=== PATIENT | female | born 2000 ===

== ENCOUNTER 2024-11-21 05:25 | Outpatient (CLI) | payer SELFPAY ==
[~2024-11-21] VITALS: Ht 165.1 cm; Wt 72.0 kg
[2024-11-21 05:55] VITALS: BP 126/80
== END 2024-11-21 06:21 | disposition left against medical advice (07) ==
LOC: M LDO 05:25
PROVIDERS: ATTEND Advanced Practice Midwife
DX: Z04.1 Encounter for examination and observation following transport accident (principal); O48.0 Post-term pregnancy; Z53.29 Procedure and treatment not carried out because of patient's decision for other reasons; Z3A.40 40 weeks gestation of pregnancy; Y92.9 Unspecified place or not applicable; Y93.9 Activity, unspecified; Y99.9 Unspecified external cause status
CPT/HCPCS: 59025; G0463